=== PATIENT | female | born 1955 | race Caucasian/White ===

== ENCOUNTER → 2023-07-13 10:51 | Outpatient (REF) | payer MEDICARE, OTHER, SELFPAY ==
[2023-07-13 11:50] LABS: % Basophils 0.9 % (0-2); % Eosinophils 1.3 % (0-6); % Immature Granulocytes 0.4 % (0-0.5); % Lymphocytes 30.9 % (20.5-51.1); % Monocytes 6.2 % (1.7-9.3); % Neutrophils 60.3 % (42.2-75.2); Absolute Basophils 0.1 10^3/uL (0-0.2); Absolute Eosinophils 0.1 10^3/uL (0-0.7); Absolute Lymphocytes 2.3 10^3/uL (1.2-3.4); Absolute Monocytes 0.5 10^3/uL (0.1-0.6); Absolute Neutrophils 4.5 10^3/uL (1.4-6.5); Hematocrit 44.9 % (37.0-47.0); Hemoglobin 15.6 g/dL (12.0-16.0); Mean Corp Hgb Conc. 34.7 g/dL (33.0-37.0); Mean Corpuscular Hgb 29.9 pg (27.0-31.0); Mean Corpuscular Volume 86.2 fL (81.0-99.0); Mean Platelet Volume 9.4 fL (7.4-10.4); Nucleated Red Blood Cells % 0 %; Platelet Count 313 10^3/uL (130-400); Red Blood Cell Count 5.21 10^6/uL (4.20-5.40); Red Cell Dist. Width 11.5 % (11.5-14.5); White Blood Cell Count 7.5 10^3/uL (4.8-10.8)
[2023-07-13 12:10] LABS: ALT (SGPT) 19 U/L (0-35); AST (SGOT) 26 U/L (14-36); Albumin 4.8 g/dl (3.5-5.0); Alkaline Phosphatase 86 U/L (38-126); Blood Urea Nitrogen 15 mg/dl (7-17); Calcium 9.9 mg/dl (8.4-10.2); Carbon Dioxide 28 mmol/L (22-30); Chloride 98 mmol/L (98-107); Glucose 102 mg/dl (70-99); HDL Cholesterol 73 mg/dl; LDL Cholesterol, Calculated 93 mg/dl; Sodium 136 mmol/L (135-145); Total Bilirubin 1.9 mg/dl (0.2-1.3); Total Cholesterol 182 mg/dl (50-199); Total Protein 7.5 g/dl (6.3-8.2); Triglyceride 83 mg/dl (10-149); Very Low Density Lipoprotein 16 mg/dl (0-30); eGFR > 60.00
[2023-07-13 14:10] LABS: Glycohemoglobin (HgbA1c) 5.9 % (4.0-5.6)
== END ==
LOC: REG 10:51
PROVIDERS: ATTENDING PHYSICIAN Physician Assistant
DX: I10 Essential (primary) hypertension (principal); R73.03 Prediabetes; Z68.28 Body mass index [BMI] 28.0-28.9, adult
CPT/HCPCS: 36415; 80053; 80061; 83036; 85025

== ENCOUNTER → 2024-01-24 08:57 | Outpatient (REF) | payer MEDICARE, OTHER, SELFPAY ==
[2024-01-24 10:13] LABS: % Basophils 0.7 % (0-2); % Eosinophils 1.4 % (0-6); % Immature Granulocytes 0.3 % (0-0.5); % Monocytes 6.8 % (1.7-9.3); % Neutrophils 73.8 % (42.2-75.2); Absolute Basophils 0.1 10^3/uL (0-0.2); Absolute Eosinophils 0.1 10^3/uL (0-0.7); Absolute Lymphocytes 1.6 10^3/uL (1.2-3.4); Absolute Monocytes 0.6 10^3/uL (0.1-0.6); Hematocrit 43.6 % (37.0-47.0); Hemoglobin 15.2 g/dL (12.0-16.0); Mean Corp Hgb Conc. 34.9 g/dL (33.0-37.0); Mean Platelet Volume 9.6 fL (7.4-10.4); Nucleated Red Blood Cells % 0 %; Platelet Count 309 10^3/uL (130-400); Red Blood Cell Count 5.07 10^6/uL (4.20-5.40); Red Cell Dist. Width 11.6 % (11.5-14.5); White Blood Cell Count 9.5 10^3/uL (4.8-10.8)
[2024-01-24 10:55] LABS: Glycohemoglobin (HgbA1c) 5.4 % (4.0-5.6)
[2024-01-24 11:27] LABS: ALT (SGPT) 25 U/L (0-35); AST (SGOT) 31 U/L (14-36); Albumin 4.8 g/dl (3.5-5.0); Alkaline Phosphatase 86 U/L (38-126); Blood Urea Nitrogen 19 mg/dl (7-17); Calcium 10.1 mg/dl (8.4-10.2); Carbon Dioxide 27 mmol/L (22-30); Chloride 97 mmol/L (98-107); Glucose 105 mg/dl (70-99); HDL Cholesterol 62 mg/dl; LDL Cholesterol, Calculated 87 mg/dl; Potassium 4.3 mmol/L (3.5-5.1); Sodium 137 mmol/L (135-145); Total Bilirubin 1.8 mg/dl (0.2-1.3); Total Cholesterol 162 mg/dl (50-199); Total Protein 7.5 g/dl (6.3-8.2); Triglyceride 66 mg/dl (10-149); Very Low Density Lipoprotein 13 mg/dl (0-30); eGFR > 60.00
== END ==
LOC: REG 08:57
PROVIDERS: ATTENDING PHYSICIAN Physician Assistant
DX: R73.03 Prediabetes (principal); N99.3 Prolapse of vaginal vault after hysterectomy; I10 Essential (primary) hypertension; Z68.29 Body mass index [BMI] 29.0-29.9, adult
CPT/HCPCS: 36415; 80053; 80061; 83036; 85025

== ENCOUNTER → 2024-03-14 07:55 | Outpatient (REF) | payer MEDICARE, OTHER, SELFPAY | LOC: WDC 07:55 | PROVIDERS: ATTENDING PHYSICIAN Physician Assistant | DX: Z12.31 Encounter for screening mammogram for malignant neoplasm of breast (principal) | CPT/HCPCS: 77063; 77067 ==

== ENCOUNTER → 2025-02-07 10:15 | Outpatient (REF) | payer MEDICARE, OTHER, SELFPAY | LOC: WDC 10:15 | PROVIDERS: ATTENDING PHYSICIAN Physician Assistant | DX: N63.15 Unspecified lump in the right breast, overlapping quadrants (principal); N63.25 Unspecified lump in the left breast, overlapping quadrants | CPT/HCPCS: 76642; 77062; 77066 ==

== ENCOUNTER → 2025-02-14 08:53 | Outpatient (REF) | payer MEDICARE, OTHER, SELFPAY | LOC: WDC 08:53 | PROVIDERS: ATTENDING PHYSICIAN Physician Assistant | DX: N63.11 Unspecified lump in the right breast, upper outer quadrant (principal) | CPT/HCPCS: 19083; 88305; A4648 ==

== ENCOUNTER → 2025-03-04 08:35 | Outpatient (REF) | payer MEDICARE, OTHER, SELFPAY ==
[2025-03-04 10:47] LABS: Hematocrit 43.4 % (37.0-47.0); Hemoglobin 15.0 g/dL (12.0-16.0); Mean Corp Hgb Conc. 34.6 g/dL (33.0-37.0); Mean Corpuscular Volume 86.3 fL (81.0-99.0); Platelet Count 322 10^3/uL (130-400); Red Cell Dist. Width 11.5 % (11.5-14.5)
[2025-03-04 11:29] LABS: ALT (SGPT) 18 U/L (0-35); AST (SGOT) 23 U/L (14-36); Albumin 4.7 g/dl (3.5-5.0); Alkaline Phosphatase 79 U/L (38-126); Blood Urea Nitrogen 22 mg/dl (7-17); Calcium 9.7 mg/dl (8.4-10.2); Carbon Dioxide 24 mmol/L (22-30); Chloride 99 mmol/L (98-107); Glucose 123 mg/dl (70-99); Potassium 4.3 mmol/L (3.5-5.1); Sodium 135 mmol/L (135-145); Total Protein 7.7 g/dl (6.3-8.2); eGFR > 60.00
== END ==
LOC: SDSPAT 08:35
PROVIDERS: ATTENDING PHYSICIAN Surgery; FAMILY PHYSICIAN Physician Assistant
DX: Z01.818 Encounter for other preprocedural examination (principal)
CPT/HCPCS: 80053; 85027; 93005

== ENCOUNTER → 2025-03-17 08:31 | Outpatient (REF) | payer MEDICARE, OTHER, SELFPAY | LOC: WDC 08:31 | PROVIDERS: ATTENDING PHYSICIAN Surgery | DX: D05.91 Unspecified type of carcinoma in situ of right breast (principal) | CPT/HCPCS: 19285; A4648 ==

== ENCOUNTER 2025-03-18 06:11 | Day surgery (SDC) | payer MEDICARE, OTHER, SELFPAY ==
[2025-03-04 14:12] VITALS: BMI 29.4
[2025-03-18 07:21] VITALS: BP 151/99
[2025-03-18 07:25] VITALS: BMI 29.4
[2025-03-18] MEDS: LOVENOX 40 MG SC (07:28)
[2025-03-18] MEDS: TYLENOL 1000 MG PO (07:28)
[2025-03-18] MEDS: NORMOSOL-R/PLASMALYTE-A 1000 IV (07:29)
[2025-03-18 08:54] VITALS: BP 106/55
[2025-03-18 09:00] VITALS: BP 99/64
--- NOTE | 2025-03-18 09:08 | W.IMMPOSTOP ---
Surgical Immed Post Op Note
-
Primary Surgeon: Reinaldo
Assisting Surgeon: None
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
Post-op Diagnosis: Right papillary lesion with DCIS
Procedure Performed: Right localized lumpectomy and oncoplastic mastoplasty
Anesthesia Type: TIVA
Specimen / Cultures: right lumpectomy, margins
Estimated Blood Loss: 6cc
Complications: None
Operative Findings: Clip, reflector, and mass
--- NOTE | 2025-03-18 09:10 | OR.RPT ---
Operative Report
Operative Report
Date of surgery 03/18/2025
Surgeon: Reinaldo
Preoperative diagnosis: Right papillary lesion with DCIS
Postoperative diagnosis: Same
Procedure: Right localized lumpectomy and oncoplastic mastoplasty
The patient is a 69-year-old female who developed an interval change on screening mammography leading to biopsy showing a papillary lesion with DCIS. She presents for a right localized lumpectomy and possible oncoplastic closure. On the day prior
to the procedure the patient presented to the [facility] where a Belle reflector was placed at the appropriate area. On the day of surgery she presented to same-day surgical services where she was prepped and verified site and
procedure. DVT and antibiotic prophylaxis were provided. She was taken to the operating room. In the supine position intravenous sedation was delivered. The right breast was prepped and draped in the usual sterile fashion and all team members
performed an appropriate timeout procedure.
Tissues were anesthetized with 1% lidocaine plain. A curvilinear incision was made with the blade overlying the area of highest Belle signal. Skin flaps were elevated with the cautery and dissection was carried down to the appropriate area where a
wide lumpectomy was performed. Time out of body was noted and the specimen was oriented for the pathologist. Specimen radiography confirmed the presence of mass, clip and reflector within it. Additional margins were harvested for permanent
analysis from the posterior, medial, superior, lateral, inferior, and anterior dimensions and these were oriented as well. Hemostasis was maintained with the cautery or 3-0 silk tie. Hemoclips were placed in the resection cavity. This left a
resulting defect of 3 x 5 cm. Therefore in an oncoplastic manner, a separate parenchymal incision was made to function as an advancement flap. The oncoplastic plane was elevated circumferentially around the incision as well. Marcaine 0.5% plain
was instilled into all tissues and the flap and other tissues were closed using simple interrupted 2-0 Polysorb. Skin was cleaned closed using simple interrupted 3-0 Polysorb and a running subcuticular 4 Monocryl. Surgical glue and a sterile
compressive dressing were applied. All sponge needle and instrument counts were correct and the patient was transferred to same-day services for recovery
([id number])
[2025-03-18 09:15] VITALS: BP 103/67
[2025-03-18 09:30] VITALS: BP 114/73
== END 2025-03-18 09:53 | disposition home or self-care (01) ==
LOC: SDS 06:11
PROVIDERS: ATTENDING PHYSICIAN Surgery; FAMILY PHYSICIAN Physician Assistant
DX: D05.11 Intraductal carcinoma in situ of right breast (principal); Z17.0 Estrogen receptor positive status [ER+]
CPT/HCPCS: 19301; 76098; 88305; 88307; 88341; 88342

== ENCOUNTER 2025-04-25 06:24 | Day surgery (SDC) | payer MEDICARE, OTHER, SELFPAY ==
[2025-04-25] VITALS (9 sets, daily range): BP systolic 86–116; BP diastolic 41–79; BMI 30.8
[2025-04-25] MEDS: TYLENOL 1000 MG PO (09:58)
[2025-04-25] MEDS: NORMOSOL-R/PLASMALYTE-A 1000 IV (10:15)
[2025-04-25] MEDS: VANCOCIN 200 IV (10:23)
[2025-04-25] MEDS: LOVENOX 40 MG SC (11:02)
--- NOTE | 2025-04-25 12:55 | W.IMMPOSTOP ---
Surgical Immed Post Op Note
-
Primary Surgeon: Reinaldo
Assisting Surgeon: None
Pre-op Diagnosis: Right breast DCIS
Post-op Diagnosis: Right breast DCIS
Procedure Performed: re-excision lumpectomy right breast
Anesthesia Type: TIVA
Specimen / Cultures: Re-excision lumpectomy, final medial margin, final posterior margin
Estimated Blood Loss: 4cc
Complications: None
Operative Findings: None
--- NOTE | 2025-04-25 12:56 | OR.RPT ---
Operative Report
Operative Report
Date of procedure: 04/25/2025
Surgeon: Reinaldo
Preoperative diagnosis: DCIS right breast
Postoperative diagnosis: Same
Procedure: Reexcision lumpectomy right breast and oncoplastic mastoplasty
The patient is a 69-year-old female who had an interval change on screening mammography leading to stereotactic biopsy showing DCIS. She underwent localized lumpectomy and 2 of the margins, the medial and the posterior were less than 2 mm.
Radiation oncology suggested reexcision the patient presents for that today. She presented to the same-day surgical services unit. She was prepped and DVT and antibiotic prophylaxis were provided. She verified site and procedure. She was taken
to the operating room.
In the supine position intravenous sedation was delivered. The right breast was prepped and draped in the usual sterile fashion. An appropriate timeout procedure was performed by all staff members. All tissues were anesthetized with 1% lidocaine
plain and the previous lumpectomy incision was incised sharply with the blade. Skin flaps were elevated with the cautery and dissection was carried down to the resection cavity. Reexcision lumpectomy was performed using the cautery. Time out of
body was noted and the specimen was oriented for the pathologist and sent for permanent analysis. A new posterior margin and new medial margin were harvested under separate cover and oriented as well. The posterior margin was taken down to chest
wall. This left a resulting defect of 4 x 5 cm therefore in an oncoplastic fashion additional parenchymal incision was made for an advancement flap. Hemoclips were replaced in the resection cavity. Marcaine 0.5% plain was instilled until all
tissues and the wound was closed in multiple layers using simple interrupted 2-0 Polysorb on deep and intermediate tissue. Skin was closed using simple interrupted 3-0 Polysorb and subcutaneous tissue and a running subcuticular 4 Monocryl with a
few simple interrupted Monocryl structures support. Surgical glue and a sterile compressive dressing were applied. All sponge needle and instrument counts were correct and the patient was transferred to the recovery room in stable condition
([id number])
== END 2025-04-25 14:02 | disposition home or self-care (01) ==
LOC: SDS 06:24
PROVIDERS: ATTENDING PHYSICIAN Surgery
DX: D05.11 Intraductal carcinoma in situ of right breast (principal)
CPT/HCPCS: 19301; 14001; 88305; 88307; 88341; 88342; 88360